=== PATIENT | male | born 1935 | race African-American/Black ===

== ENCOUNTER 2016-06-08 16:46 | Emergency (ER) | payer OTHER ==
[~2016-06-08] VITALS: Ht 175.3 cm; Wt 86.2 kg
--- NOTE | ~2016-06-08 | EKG ---
[address] [address] [place] [address] ELECTROCARDIOGRAM REPORT Name: RYAN DEL ANGEL Room #: DEP CLIFF Mcdowell#: [id number] Admission: 06/08/16 Attend Phys: Discharge: 06/08/16 Date of : 33 Report #: [id number] THIS REPORT FOR: //name// [facility] ED Test Date: 2016-06-08 Test Time: 16:48:36 Pat Name: RYAN DEL ANGEL Department: Room: Gender: [employer] Operator: SHADI : 1935 Requested By: Alejandro Craft Order Number: [id number] MD: Tung Spangler Measurements Intervals [place] Rate: 70 P: 47 MI: 218 QRS: 41 QRSD: 132 T: -21 QT: 387 QTc: 418 Interpretive Statements Sinus rhythm Borderline prolonged MI interval Right bundle branch block No previous ECG available for comparison Electronically Signed On 06-09-2016 9:28:55 MANAGER LAUNDRY by Tung Spangler [email or web address] <ELECTRONICALLY SIGNED> By: Tung Spangler MD, [facility] 06/09/16 0928 1648 1648 Tung Spangler MD, FACC /EPI
[~2016-06-08 16:46] MED LIST: NORCO 5-325 TA1 EACH PO
[2016-06-08] MEDS ORDERED: ARICEPT 5 MG TAB5 MG PO (16:59)
[2016-06-08] MEDS ORDERED: CENTRUM SILVER1 EAC4 PO (17:00)
[2016-06-08] MEDS ORDERED: ATORVASTATIN CA40 MG PO (17:27)
[2016-06-08 17:35] LABS: ABSOLUTE NEUTROPHILS 4.9 thou/uL (1.4-8.2); BASOPHILS 0.5 % (0.0-2.0); EOSINOPHILS 0.4 % (0.0-3.0); HEMATOCRIT 48.2 % (42.0-52.0); HEMOGLOBIN 16.3 gm/dL (14.0-18.0); LYMPHOCYTES 11.3 % (24.0-44.0); MCH 29.7 pg (26.0-34.0); MCHC 33.8 % (28.0-37.0); MCV 87.7 fL (80.0-100.0); MONOCYTES 6.3 % (1.0-8.0); PLATELET COUNT 263 thou/uL (150-400); POLYS 81.5 % (36.0-66.0); RBC 5.49 mil/uL (4.50-6.00); RDW 13.8 % (10.5-14.5); WBC 6.1 thou/uL (4.0-11.0)
[2016-06-08 17:38] LABS: MANUAL DIFF NO
[2016-06-08 17:42] LABS: ANION GAP 10 mmol/L (7-16); BUN 13 mg/dL (7-18); CALCIUM 9.5 mg/dL (8.5-10.1); CHLORIDE 107 mmol/L (98-107); CO2 24 mmol/L (21-32); CREATININE 1.4 mg/dL (0.6-1.3); GLUCOSE 121 mg/dL (70-99); POTASSIUM 4.2 mmol/L (3.5-5.1); SODIUM 141 mmol/L (136-145)
[2016-06-08 17:58] LABS: APTT 22.8 Seconds (24.5-32.8); INR 1.1; PROTIME 11.4 Seconds (9.3-11.4)
[2016-06-08 17:59] LABS: ALBUMIN 3.9 g/dL (3.4-5.0); ALKALINE PHOSPHATASE 75 U/L (46-116); MAGNESIUM 2.2 mg/dL (1.8-2.4); NT-PRO BRAIN NAT PEPTIDE 38 pg/mL (<300); SGOT 17 U/L (15-37); SGPT 33 U/L (30-65); TOTAL BILIRUBIN 0.7 mg/dL (<0.1-1.0); TOTAL PROTEIN 7.5 g/dL (6.4-8.2); TROPONIN-I < 0.04 ng/mL (<0.04-0.07)
[2016-06-08 18:30] LABS: URINE BILIRUBIN NEGATIVE (Negative); URINE BLOOD NEGATIVE (Negative); URINE COLOR YELLOW; URINE GLUCOSE-RANDOM* NEGATIVE (Negative); URINE KETONES NEGATIVE (Negative); URINE LEUKOCYTES-REFLEX NEGATIVE (Negative); URINE PROTEIN (DIPSTICK) NEGATIVE (Negative); URINE SPECIFIC GRAVITY >= 1.030 (1.003-1.035); URINE UROBILINOGEN 0.2 E.U./dl (0.2-1.0)
[2016-06-08] MEDS ORDERED: ANTIVERT25 MG PO (19:09)
[2016-06-08] MEDS ORDERED: TRAMADOL 50 MG50 MG PO (19:09)
[2016-06-08 19:34] VITALS: BP 149/87
== END 2016-06-08 19:35 | disposition home or self-care (01) ==
LOC: ER 16:46
PROVIDERS: Emergency Medicine
DX: R42 Dizziness and giddiness (principal); R07.89 Other chest pain; Z88.0 Allergy status to penicillin; W18.30XA Fall on same level, unspecified, initial encounter; Y93.9 Activity, unspecified; Y92.9 Unspecified place or not applicable; Y99.9 Unspecified external cause status

== ENCOUNTER 2016-11-05 08:58 | Inpatient (IN) | payer OTHER ==
[~2016-11-05] VITALS: Ht 172.7 cm; Wt 90.7 kg
--- NOTE | ~2016-11-05 | EKG ---
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 : 1935 Requested By: Isela Luciano Order Number: [id number] MD: Tung Spangler Measurements Intervals [place] Rate: 87 P: 70 IN: 227 QRS: 44 QRSD: 127 T: -19 QT: 386 QTc: 465 Interpretive Statements Sinus rhythm Prolonged IN interval Right bundle branch block Compared to ECG 06/08/2016 16:48:36 No significant change was found Electronically Signed On 11-06-2016 8:43:28 CDT by Tung Spangler [email or web address] <ELECTRONICALLY SIGNED> By: Tung Spangler MD, [facility] 11/06/16 0843 Tung Spangler MD, [facility] /EPI
[~2016-11-05 08:58] MED LIST changes: +ANTIVERT25 MG PO; +ARICEPT 5 MG TAB5 MG PO; +ATORVASTATIN CA40 MG PO; +CENTRUM SILVER1 EAC4 PO; +TRAMADOL 50 MG50 MG PO
[2016-11-05 08:59] VITALS: BP 120/72
[2016-11-05 09:59] LABS: ABSOLUTE NEUTROPHILS 5.7 thou/uL (1.4-8.2); BASOPHILS 0.3 % (0.0-2.0); EOSINOPHILS 0.9 % (0.0-3.0); HEMATOCRIT 42.7 % (42.0-52.0); HEMOGLOBIN 14.6 gm/dL (14.0-18.0); LYMPHOCYTES 11.1 % (24.0-44.0); MCHC 34.3 g/dL (28.0-37.0); MCV 87.4 fL (80.0-100.0); MONOCYTES 9.2 % (1.0-8.0); PLATELET COUNT 257 thou/uL (150-400); POLYS 78.5 % (36.0-66.0); RBC 4.88 mil/uL (4.50-6.00); RDW 13.9 % (10.5-14.5); WBC 7.2 thou/uL (4.0-11.0)
[2016-11-05 10:00] LABS: MANUAL DIFF NO
[2016-11-05 10:20] LABS: ALBUMIN 3.5 g/dL (3.4-5.0); ALKALINE PHOSPHATASE 61 U/L (46-116); ANION GAP 6 mmol/L (7-16); BUN 18 mg/dL (7-18); CHLORIDE 108 mmol/L (98-107); CO2 28 mmol/L (21-32); CREATININE 1.5 mg/dL (0.7-1.3); GLUCOSE 108 mg/dL (74-106); NT-PRO BRAIN NAT PEPTIDE 84 pg/mL (<300); POTASSIUM 3.8 mmol/L (3.5-5.1); SGOT 17 U/L (15-37); SGPT 17 U/L (30-65); SODIUM 142 mmol/L (136-145); TOTAL BILIRUBIN 0.7 mg/dL (<0.1-1.0); TOTAL PROTEIN 6.7 g/dL (6.4-8.2); TROPONIN-I < 0.04 ng/mL (<0.04-0.07)
[2016-11-05 10:42] LABS: URINE BILIRUBIN NEGATIVE (Negative); URINE BLOOD NEGATIVE (Negative); URINE COLOR YELLOW; URINE GLUCOSE-RANDOM* NEGATIVE (Negative); URINE KETONES NEGATIVE (Negative); URINE NITRITE NEGATIVE (Negative); URINE PROTEIN (DIPSTICK) NEGATIVE (Negative); URINE SPECIFIC GRAVITY 1.025 (1.003-1.035); URINE UROBILINOGEN 0.2 E.U./dl (0.2-1.0)
[2016-11-05 11:15] VITALS: BP 131/92
[2016-11-05 14:01] LABS: TSH 1.37 uIU/mL (0.358-3.740)
[2016-11-05 16:00] VITALS: BP 131/92
[2016-11-05 19:49] VITALS: BP 146/83
[2016-11-05 21:34] LABS: CHOLESTEROL 151 mg/dL (<200); HDL CHOLESTEROL 49 mg/dL (>40); LDL CHOLESTEROL 93 mg/dL (<100); SERUM ASSESSMENT Clear; TC:HDL 3.1 Ratio (Not establshd); TRIGLYCERIDE 46 mg/dL (<150); VLDL 9 mg/dL (<40)
[2016-11-06 03:30] VITALS: BP 136/82
[2016-11-06 08:00] VITALS: BP 163/80
[2016-11-06 12:07] LABS: FREE T4 1.3 ng/dL (0.82-1.77)
[2016-11-06 16:00] VITALS: BP 146/71
[2016-11-06 19:15] VITALS: BP 136/87
[2016-11-07 05:09] VITALS: BP 138/89
[2016-11-07 06:10] LABS: GLYCOHEMOGLOBIN (HGB A1C) 5.3 % (4.8-5.6)
[2016-11-07 08:00] VITALS: BP 141/89
[2016-11-07 16:00] VITALS: BP 129/68; BP 141/89
[2016-11-07 19:30] VITALS: BP 134/91
[2016-11-08 04:10] VITALS: BP 151/91
[2016-11-08 08:44] VITALS: BP 173/96
[2016-11-08 09:09] VITALS: BP 132/72
[2016-11-08 15:43] VITALS: BP 126/77
[2016-11-08 19:23] VITALS: BP 151/70
[2016-11-09 04:22] VITALS: BP 150/78
[2016-11-09 10:13] VITALS: BP 139/90
[2016-11-09 14:39] VITALS: BP 139/90
== END 2016-11-09 16:20 | disposition home or self-care (01) | DRG 71 ==
LOC: ER 08:58 → EROBS 10:39 → 4S 10:39
PROVIDERS: Family Medicine; Physician Assistant; Psychiatry & Neurology Neurology
DX: G93.40 Encephalopathy, unspecified (principal); G91.2 (Idiopathic) normal pressure hydrocephalus; F03.90 Unspecified dementia, unspecified severity, without behavioral disturbance, psychotic disturbance, mood disturbance, and anxiety; R42 Dizziness and giddiness; N18.9 Chronic kidney disease, unspecified; E78.5 Hyperlipidemia, unspecified; W18.30XA Fall on same level, unspecified, initial encounter; Z79.899 Other long term (current) drug therapy; Y93.89 Activity, other specified; Y92.89 Other specified places as the place of occurrence of the external cause; Y99.8 Other external cause status; Z88.0 Allergy status to penicillin
CPT/HCPCS: 10100